=== PATIENT | male | born 1945 | race Caucasian/White ===

== ENCOUNTER 2022-02-23 08:43 | Day surgery (SDC) | payer MEDICARE, OTHER ==
[2022-02-20 15:31] VITALS: BMI 33.9
[~2022-02-23 08:43] MED LIST: ALPRAZolam 0.25 MG TAB PO PRN; ALPRAZolam 0.5 MG TAB PO PRN; ASPIRIN 325 MG TAB PO ONE; HEPARIN SODIUM,PORCINE 10,000 UNIT in SODIUM CHLORIDE 0.9% 1,000 ML IRRIGATION PRN; HEPARIN SODIUM,PORCINE 2,500 UNIT in SODIUM CHLORIDE 0.9% 250 ML IRRIGATION PRN; NITROGLYCERIN SL TABS 0.4 MG TAB SUBLINGUAL PRN; SODIUM CHLORIDE 0.9% 1,000 ML in EMPTY BAG 1 BAG IV SCH
[2022-02-23] MEDS ORDERED: SODIUM CHLORIDE 0.9% 1,000 ML IV ONE (08:52)
[2022-02-23] MEDS ORDERED: LIDOCAINE 1% INJ 10MG/ML (20 ML MDV) ONE (09:29)
[2022-02-23] MEDS ORDERED: VERAPAMIL 2.5 MG/ML 2 ML AMP ONE (09:29)
[2022-02-23 09:32] LABS: Basophils # (A) 0.1 k/uL (0-0.2); Basophils % (A) 1 %; Eosinophils # (A) 0.1 k/uL (0-0.7); Eosinophils % (A) 1 %; HCT 48.7 % (39.0-53.0); HGB 16.3 gm/dL (13.0-17.5); Lymphocytes % (A) 23 %; MCH 34.5 pg (25.0-35.0); MCHC 33.5 g/dL (31.0-37.0); MCV 102.9 fL (80.0-100.0); Macrocytosis Moderate; Mean Platelet Volume 9.4; Monocytes # (A) 0.6 k/uL (0-1.0); Monocytes % (A) 7 %; Neutrophils # (A) 5.7 k/uL (1.3-7.7); Neutrophils % (A) 66 %; Platelet Count 231 k/uL (150-450); RBC 4.73 m/uL (4.30-5.90); RDW 15.9 % (11.5-15.5); WBC 8.7 k/uL (3.8-10.6)
[2022-02-23 09:33] VITALS: RESP 16; TEMP 98.2
[2022-02-23 09:34] LABS: Calcium 9.2 mg/dL (8.4-10.2); Potassium 4.2 mmol/L (3.5-5.1)
[2022-02-23] MEDS ORDERED: fentaNYL (PF) 50 MCG/ML 2 ML AMP ONE (10:20)
[2022-02-23] MEDS ORDERED: HEPARIN SODIUM 1,000 UN/ML (10ML VL) ONE (10:21)
[2022-02-23] MEDS: MIDAZOLAM 2 MG/2 ML VIAL IV ONE ×2 (10:24→10:50)
[2022-02-23] MEDS ORDERED: fentaNYL (PF) 50 MCG/ML 2 ML AMP IV ONE (10:24)
[2022-02-23] MEDS ORDERED: LIDOCAINE 1% INJ 10MG/ML (20 ML MDV) SQ ONE (10:25)
[2022-02-23] MEDS ORDERED: HEPARIN SODIUM 1,000 UN/ML (10ML VL) IV ONE (10:35)
[2022-02-23] MEDS: VERAPAMIL SYRINGE (5 MG/10 ML) INTRAARTER ONE ×2 (10:35→10:40)
[2022-02-23] MEDS ORDERED: IOPAMIDOL-370 125ML BTL INJ ONE (11:11)
[2022-02-23 13:34] VITALS: PULSE 68
[2022-02-23 13:36] VITALS: BP 164/79
--- NOTE | 2022-02-23 21:46 | P.CARDCATH ---
Description of Procedure: PROCEDURES PERFORMED: Left heart catheterization, bilateral coronary angiography INDICATION: Abnormal stress test CONSENT:I have discussed the risks, benefits and alternative therapies for the above-mentioned procedure and for both sedation/analgesia as well as necessary blood product administration, if indicated, as they pertain to this patient. The patient has indicated understanding and acceptance of the risks and procedures discussed. PROCEDURE: After the risks, benefits and alternatives of the above mentioned procedure explained in detail with the patient, informed consent was obtained. Patient was taken to the catheterization lab and prepped and draped in usual fashion. 1% lidocaine was used to anesthetize the right radial artery. A 6- [place] Islander sheath was placed in the right radial artery using modified Seldinger technique. Left coronary angiography was performed with a 6-[place] Islander JL 3.5 catheter and right coronary angiography was performed with a 6-[place] Islander AL 0.75 guide catheter in various views after multiple attempts with FR5, AR2, AL1, Shaji Right. There was significant tortuosity of the subclavian however manageable. A 5-[place] Islander FR5 catheter was inserted into the left ventricle and pressure measurements were obtained. The right radial sheath was removed and a TR band was placed with hemostasis achieved. The patient tolerated the procedure well. Patient was transported back to the post catheterization holding area in stable condition. Conscious Sedation: Patient was monitored under the direct supervision of vision of myself for conscious sedation using Versed and fentanyl for a total duration of 47 minutes HEMODYNAMICS: Ao: 143/78 LV: 146/5, LVEDP 19 mmHg, SELECTIVE CORONARY ARTERIOGRAPHY: LEFT MAIN: The left main is a large caliber vessel which bifurcates into the LAD and circumflex. There is no significant stenosis. LEFT ANTERIOR DESCENDING CORONARY ARTERY: LAD is a large caliber vessel which wraps around to the apex. There is a mid LAD stent at the level of a small caliber diagonal 1 branch which has a 50% instent stenosis. Otherwise there are mild luminal irregularities. LEFT CIRCUMFLEX CORONARY ARTERY: Left circumflex is a moderate to large caliber vessel without significant stenosis and is dominant supplying PDA. RIGHT CORONARY ARTERY: The right coronary artery is a small caliber vessel which gives off an acute marginal branch and is nondominant. There is no significant stenosis. FINAL IMPRESSION: 1. CAD as described above with 50% instent LAD stenosis and otherwise normal coronary arteries. 2. Mildly elevated left sided filling pressures PLAN: 1. Aggressive risk factor modification per most recent ACC/AHA guidelines. 2. Follow-up in the office in 1-2 weeks.
== END 2022-02-23 15:10 | disposition home or self-care (01) ==
LOC: CATHCVL 08:43
PROVIDERS: ATTEND Internal Medicine
DX: T82.855A Stenosis of coronary artery stent, initial encounter (principal); I12.9 Hypertensive chronic kidney disease with stage 1 through stage 4 chronic kidney disease, or unspecified chronic kidney disease; N18.9 Chronic kidney disease, unspecified; E78.5 Hyperlipidemia, unspecified; E83.119 Hemochromatosis, unspecified; R94.39 Abnormal result of other cardiovascular function study; Z20.822 Contact with and (suspected) exposure to COVID-19; I42.9 Cardiomyopathy, unspecified; Z79.82 Long term (current) use of aspirin; Z79.899 Other long term (current) drug therapy
CPT/HCPCS: 93458; 80048; 85025; 87635; C1887; C1894 ×2; C1769 ×2; J2250; J2001; J3010; J1644; Q9967

== ENCOUNTER 2025-03-17 01:58 | Inpatient (IN) | payer MEDICARE, OTHER ==
[2025-03-17] MEDS ORDERED: HEPARIN SODIUM 1,000 UN/ML (10ML VL) IV PRN (02:16)
[2025-03-17] MEDS ORDERED: NITROGLYCERIN SL TABS 0.4 MG TAB SUBLINGUAL PRN ×2 (02:17→10:07)
[2025-03-17] MEDS: HEPARIN SOD,PORK IN 0.45% NACL 25,000 UNIT in 0.45% NACL 1 250ML.BAG IV SCH (02:18)
--- NOTE | 2025-03-17 02:21 | ED ---
General Adult HPI - General Chief complaint: Arrhythmia/Palpitations Stated complaint: Abnormal Labs, Shoulder Pain Time Seen by Provider: 03/17/25 02:01 Source: patient, EMS Mode of arrival: EMS Limitations: no limitations - History of Present Illness Initial comments: Dictation was produced using [employer] dictation software. please excuse any grammatical, word or spelling errors. Chief Complaint: 79-year-old male transferred from [facility] for NSTEMI History of Present Illness: Patient 79-year-old male history of coronary artery disease transferred from [facility] for NSTEMI. Patient had elevated delta high-sensitivity troponin. Patient seen for couple days of exertional left shoulder pain reminiscent of when he was diagnosed with a heart attack several years ago. He follows up with Dr. Portillo from our cardiology team. Patient states that he has 2 stents. Seen and evaluated at [facility] high-sensitivity troponin of 11 with a repeat of 59. Started heparin and transferred to our hospital. Patient denies any symptoms at the bedside. The ROS documented in this emergency department record has been reviewed and confirmed by me. Those systems with pertinent positive or negative responses have been documented in the HPI. All other systems are other negative and/or noncontributory. - Related Data Home Medications Medication Instructions Recorded Confirmed Acetaminophen Tab [Tylenol Tab] 1,000 mg PO BID 02/20/22 02/23/22 Aspirin [Adult Low Dose Aspirin EC] 81 mg PO HS 02/20/22 02/23/22 Atorvastatin [Lipitor] 80 mg PO HS 02/20/22 02/23/22 Calcium Tab 300 mg PO DAILY 02/20/22 02/23/22 Cholecalciferol [Vitamin D3 (25 50 mcg PO DAILY 02/20/22 02/23/22 Mcg = 1000 Iu)] Folic Acid 1 mg PO HS 02/20/22 02/23/22 Losartan Potassium [Cozaar] 100 mg PO DAILY 02/20/22 02/23/22 [place]-3 Fatty Acids/Fish Oil [Fish 1 each PO DAILY 02/20/22 02/23/22 Oil 1,000 mg Softgel] Omeprazole [PriLOSEC] 20 mg PO AC-BRKFST 02/20/22 02/23/22 Tamsulosin HCl [Flomax] 0.4 mg PO BID 02/20/22 02/23/22 allopurinoL [Zyloprim] 300 mg PO HS 02/20/22 02/23/22 carvediloL [Coreg] 6.25 mg PO BID 02/20/22 02/23/22 cloNIDine HCL [Catapres] 0.2 mg PO HS 02/20/22 02/23/22 Allergies Allergy/AdvReac Type Severity Reaction Status Date / Time adhesive tape Allergy Rash/Hives Verified 03/17/25 02:04 Review of Systems ROS Statement: Those systems with pertinent positive or pertinent negative responses have been documented in the HPI. ROS Other: All systems not noted in ROS Statement are negative. Past Medical History Past Medical History: Coronary Artery Disease (CAD), CVA/TIA, Diabetes Mellitus, GERD/Reflux, Hyperlipidemia, Hypertension, Myocardial Infarction (DE), Osteoarthritis (OA) Additional Past Medical History / Comment(s): TIA-no residual effects, "silent [place] x 5", hx ulcer, occ "bleeding hemorrhoid", diet control diabetic, hemachromatosis, "lttle problem with the kidneys" Last Myocardial Infarction Date:: 1988 History of Any Multi-Drug Resistant Organisms: None Reported Past Surgical History: Appendectomy, Heart Catheterization, Heart Catheterization With Stent, Prostate Surgery Additional Past Surgical History / Comment(s): two cardiac stents, moreno cataracts with implants Past Anesthesia/Blood Transfusion Reactions: No Reported Reaction Date of Last Stent Placement:: 1998 Past Psychological History: No Psychological Hx Reported Smoking Status: Former smoker - Past Family History Mother Family Medical History: Cancer Additional Family Medical History / Comment(s): colon cancer General Exam - General Exam Comments Initial Comments: PHYSICAL EXAM: General Impression: Alert and oriented x3, not in acute distress HEENT: Normocephalic atraumatic, extra-ocular movements intact, pupils equal and reactive to light bilaterally, mucous membranes moist. Cardiovascular: Heart regular rate and rhythm Chest: Able to complete full sentences, no retractions, no tachypnea Abdomen: abdomen soft, non-tender, non-distended, no organomegaly Musculoskeletal: Pulses present and equal in all extremities, no peripheral edema Motor: no focal deficits noted Neurological: CN II-XII grossly intact, no focal motor or sensory deficits noted Skin: Intact with no visualized rashes Psych: Normal affect and mood Limitations: no limitations Course Vital Signs 03/17/25 01:59 Temperature 97.6 F Pulse Rate 87 Respiratory 20 Rate Blood Pressure 173/100 O2 Sat by Pulse 99 Oximetry EKG Findings - EKG Comments: EKG Findings:: My EKG interpretation: Ventricular rate 87, sinus rhythm,. 174, QRS 93, QTc 4 3. No [place] prolongation, no QTC prolongation. EKG from [facility] from 9:30 PM yesterday and 12:56 AM this morning showing no dynamic changes Medical Decision Making - Medical Decision Making Was pt. sent in by a medical professional or institution (, PA, BLACK TOP PAVER OPERATOR, urgent care, hospital, or shelter...) When possible be specific @ -Transfer from outside emergency department Did you speak to anyone other than the patient for history (EMS, parent, family, police, friend...)? What history was obtained from this source @ -No Did you review nursing and triage notes (agree or disagree)? Why? @ -I reviewed and agree with nursing and triage notes Were old charts reviewed (outside hosp., previous admission, EMS record, old EKG, old radiological studies, urgent care reports/EKG's, shelter records)? Report findings @ -No old charts were reviewed Differential Diagnosis (chest pain, altered mental status, abdominal pain women, abdominal pain men, vaginal bleeding, musculoskeletal, weakness, fever, dyspnea, syncope, headache, dizziness, GI bleed, back pain, seizure, CVA, palpatations, mental health)? @ -Differential Chest Pain: Stable Angina, Unstable Angina, STEMI, NSTEMI Aortic Dissection, Pneumothorax, Musculoskeletal, Esophageal Spasm GERD, Cholecystitis, Pancreatitis, Zoster, this is not meant to be an all-inclusive list. EKG interpreted by me (3pts min.). @ -See above X-rays interpreted by me (1pt min.). @ -None done CT interpreted by me (1pt min.). @ -None done U/S interpreted by me (1pt. min.). @ -None done What testing was considered but not performed or refused? (CT, X-rays, U/S, labs)? Why? @ -None What meds were considered but not given or refused? Why? @ -None Was smoking cessation discussed for >3mins.? @ -No Were there social determinants of health that impacted care today? How? (Homelessness, low income, unemployed, alcoholism, drug addiction, transportation, low edu. Level, literacy, decrease access to med. care, nursing home, rehab)? @ -No Was there de-escalation of care discussed even if they declined (Discuss DNR or withdrawal of care, Hospice)? DNR status @ -No What co-morbidities impacted this encounter? (DM, HTN, Smoking, COPD, CAD, Cancer, CVA, ARF, Chemo, Hep., AIDS, mental health diagnosis, sleep apnea, morbid obesity)? @ -Coronary artery disease Was patient admitted / discharged? Hospital course, mention meds given and r oute, prescriptions, significant lab abnormalities, going to OR and other pertinent info. @ -79-year-old male presents emergency department for NSTEMI. He is transferred from outside emergency department. Patient had a positive delta high-sensitivity troponin. Vital signs stable. Patient transferred for higher level of care at the facility of his primary machine setter. EKG shows no dynamic changes when compared to EKGs from previous hospital. Heparin continued. Case discussed with hospitalist for admission Did you discuss the management of the patient with other professionals (professionals i.e. , PA, BLACK TOP PAVER OPERATOR, lab, RT, psych nurse, addiction social worker, active directory systems administrator, teacher, custodial officer, manager rn case)? Give summary @ -No Was critical care preformed (if so, how long)? @ -No Undiagnosed new problem with uncertain prognosis? @ -No Drug Therapy requiring intensive monitoring for toxicity (Heparin, Nitro, Insulin, Cardizem)? @ -No Were any procedures done? @ -No Diagnosis/symptom? Acute, or Chronic, or Acute on Chronic? Uncomplicated (without systemic symptoms) or Complicated (systemic symptoms)? @ -Default Side effects of treatment? @ -chest pain Exacerbation, Progression, or Severe Exacerbation? @ -No Poses a threat to life or bodily function? How? (Chest pain, [place], DE, pneumonia, PE, COPD, DKA, ARF, appy, cholecystitis, CVA, Diverticulitis, Homicidal, Suicidal, threat to staff... and all critical care pts) @ -yes Disposition Clinical Impression: NSTEMI (non-ST elevated myocardial infarction) Disposition: ADMITTED IP TO THIS [facility] Condition: Fair Decision Time: 03:16
[2025-03-17] MEDS: NITROGLYCERIN OINT 1 INCH/GM PACKET TOPICAL SCH (06:24)
[2025-03-17] MEDS: MAGNESIUM SULFATE-D5W PMX 1 GM in DEXTROSE/WATER 1 100ML.BAG IVPB SCH (09:24)
[2025-03-17] MEDS: carvediloL 6.25 MG TAB PO SCH (09:25)
[2025-03-17 09:52] LABS: African American GFR (CKD) 57 (>60 ml/min/1.73 sqM); Anion Gap 13 mmol/L; Blood Urea Nitrogen 27 mg/dL (9-20); Calcium 9.4 mg/dL (8.4-10.2); Carbon Dioxide 20 mmol/L (22-30); Chloride 107 mmol/L (98-107); Glucose 145 mg/dL (74-99); Non-African American GFR(CKD) 49 (>60 ml/min/1.73 sqM); Potassium 4.4 mmol/L (3.5-5.1); Sodium 140 mmol/L (137-145)
[2025-03-17] MEDS ORDERED: ALPRAZolam 0.5 MG TAB PO PRN (10:07)
[2025-03-17] MEDS: SODIUM CHLORIDE 0.9% 500 ML 500 ML IV ONE (10:24)
[2025-03-17] MEDS: IV FLUID CONTINUATION 1,000 ML IV ONE (10:24)
[2025-03-17] MEDS: HEPARIN SODIUM,PORCINE (1 ML) 2,500 UNIT in SODIUM CHLORIDE 0.9% 250 ML IRRIGATION ONE (10:30)
[2025-03-17] MEDS: HEPARIN SODIUM,PORCINE 10,000 UNIT in SODIUM CHLORIDE 0.9% 1,000 ML IRRIGATION ONE (10:30)
[2025-03-17] MEDS: ASPIRIN 325 MG TAB PO ONE (10:36)
[2025-03-17] MEDS: MIDAZOLAM 2 MG/2 ML VIAL IVP ONE (10:52)
[2025-03-17] MEDS: fentaNYL (PF) 50 MCG/ML 2 ML AMP IVP ONE (10:53)
[2025-03-17] MEDS: LIDOCAINE 1% INJ 10MG/ML (20 ML MDV) SQ ONE (10:57)
[2025-03-17] MEDS: VERAPAMIL SYRINGE (5 MG/10 ML) INTRAARTER ONE (10:59)
[2025-03-17] MEDS: NITROGLYCERIN 1000MCG/10ML SYRINGE INTRACORON ONE (11:12)
[2025-03-17] MEDS: IOPAMIDOL-370 100ML BTL INJ ONE ×3 (11:28→11:29)
--- NOTE | 2025-03-17 12:23 | P.CRDCN ---
History of Present Illness Consult date: 03/17/25 Requesting physician: Praveen Crow Reason for Consult (text): chest pain Chief complaint: Left shoulder pain History of present illness: Patient is a 79 year old male with past medical history of CAD status post prior stenting, diabetes mellitus, hyperlipidemia, hypertension, TIA presented to the ED with left shoulder pain. Patient reports having left shoulder pain for 2 to 3 days now. Pain extends down to middle of the upper arm. He reports worsening of the pain with brisk walks. Denies chest pain. Denies any increase in physical activity. Denies trauma/injury. Associated with that he reports epigastric burning and diaphoresis. Patient initially presented to [facility] where he had elevated high-sensitivity troponin of 11 with a repeat of 59. He was started on heparin and transferred to our hospital. In 1998 patient had a mid LAD stent placed. Patient had cardiac cath January 2022 that showed the mid LAD stent was patent, 50% stenosis of the mid LAD, dominant circumflex, with only mild luminal irregularities. Carotid ultrasound done in June 2023 showed less than 50% stenosis bilaterally. Denies fever, chills, shortness of breath, cough, chest pain, palpitations, nausea, vomiting, hematuria, dysuria, hematochezia, melena, headache, slurred speech, numbness, tingling, dizziness, lightheadedness, blurred vision, double vision. ED documentation reviewed. In the ED patient was treated with aspirin 325 mg, heparin drip. Vitals T 98.1 F, AR 79 bpm, RR 18, BP 155/94, SpO2 99% on room air EKG independently interpreted as sinus rhythm, ST depression in lead II,, rate 87 bpm, QTc 403 ms Chest x-ray done at [facility] showed no consolidation Labs show sodium 140, potassium 4.4, magnesium 1.8, creatinine 1.37, Troponin I 3.30, 4.64 Echocardiogram done in office December 2023 showed EF 50%, mildly improved from prior 45 to 40% with mild aortic regurgitation and mild mitral regurgitation Review of systems: Pertinent positives and negatives as discussed in HPI, a complete review of systems was performed and all other systems are negative. Physical examination: Vital signs reviewed GENERAL: This is a 79-year-old obese male in no acute respiratory distress. HEENT: Head is atraumatic, normocephalic. Pupils equal, round. Sclerae is anicteric. NECK: Supple. No JVD. No carotid bruit LUNGS: Clear to auscultation. No wheezes or rhonchi. No intercostal retractions. HEART: Regular rate and rhythm. No murmur or gallop or rub ABDOMEN: Soft No tenderness. EXTREMITIES: Left shoulder tenderness, No pedal edema. No calf tenderness. 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 please excuse any grammatical, word or spelling errors. Veniat Greene MD PGY-1 IM Past Medical History Past Medical History: Coronary Artery Disease (CAD), CVA/TIA, Diabetes Mellitus, GERD/Reflux, Hyperlipidemia, Hypertension, Myocardial Infarction (MD), Osteoarthritis (OA) Additional Past Medical History / Comment(s): TIA-no residual effects, "silent [place] x 5", hx ulcer, occ "bleeding hemorrhoid", diet control diabetic, hemachromatosis, "lttle problem with the kidneys" Last Myocardial Infarction Date:: 1988 History of Any Multi-Drug Resistant Organisms: None Reported Past Surgical History: Appendectomy, Heart Catheterization, Heart Catheterization With Stent, Prostate Surgery Additional Past Surgical History / Comment(s): two cardiac stents, moreno cataracts with implants Past Anesthesia/Blood Transfusion Reactions: No Reported Reaction Date of Last Stent Placement:: 1998 Past Psychological History: No Psychological Hx Reported Smoking Status: Former smoker - Past Family History Mother Family Medical History: Cancer Additional Family Medical History / Comment(s): colon cancer Medications and Allergies Home Medications Medication Instructions Recorded Confirmed Type Acetaminophen Tab [Tylenol Tab] 1,000 mg PO BID 02/20/22 03/17/25 History Aspirin [Adult Low Dose Aspirin EC] 81 mg PO HS 02/20/22 03/17/25 History Atorvastatin [Lipitor] 80 mg PO HS 02/20/22 03/17/25 History Calcium Tab 300 mg PO DAILY 02/20/22 03/17/25 History Folic Acid 1 mg PO HS 02/20/22 03/17/25 History Omeprazole [PriLOSEC] 20 mg PO DAILY 02/20/22 03/17/25 History Tamsulosin HCl [Flomax] 0.4 mg PO BID 02/20/22 03/17/25 History allopurinoL [Zyloprim] 300 mg PO HS 02/20/22 03/17/25 History carvediloL [Coreg] 6.25 mg PO BID 02/20/22 03/17/25 History cloNIDine HCL [Catapres] 0.2 mg PO BID 02/20/22 03/17/25 History Cholecalciferol (Vitamin D3) 50 mcg PO DAILY 03/17/25 03/17/25 History [Vitamin D3 (50 Mcg = 2000 Iu)] Losartan [Cozaar] 50 mg PO HS 03/17/25 03/17/25 History Allergies Allergy/AdvReac Type Severity Reaction Status Date / Time adhesive tape Allergy Rash/Hives Verified 03/17/25 07:38 Physical Exam Vitals: Vital Signs Temp Pulse Pulse Resp BP BP Pulse Ox 03/17/25 10:27 96 18 154/102 96 03/17/25 08:00 98.1 F 89 18 148/101 96 03/17/25 06:03 79 18 155/94 99 03/17/25 01:59 97.6 F 87 20 173/100 99 Intake and Output 03/16/25 03/17/25 03/17/25 22:59 06:59 14:59 Other: Weight 108.862 kg Results 03/17/25 06:31 Cardiac Enzymes 03/17/25 03/17/25 Range/Units 02:40 05:15 Troponin I 3.300 H* 4.640 H* (0.000-0.034) ng/mL Coagulation 03/17/25 Range/Units 06:31 APTT 62.8 H (22.0-30.0) sec Comprehensive Metabolic Panel 03/17/25 Range/Units 06:31 Sodium 140 (137-145) mmol/L Potassium 4.4 (3.5-5.1) mmol/L Chloride 107 (98-107) mmol/L Carbon Dioxide 20 L (22-30) mmol/L BUN 27 H (9-20) mg/dL Creatinine 1.36 H (0.66-1.25) mg/dL Glucose 145 H (74-99) mg/dL Calcium 9.4 (8.4-10.2) mg/dL Current Medications Generic Name Dose Route Start Last Admin Trade Name Freq PRN Reason Stop Dose Admin Alprazolam 0.25 mg 03/17/25 10:07 Alprazolam 0.25 Mg Tab PO Q6HR PRN Mild Anxiety Alprazolam 0.5 mg 03/17/25 10:07 Alprazolam 0.5 Mg Tab PO Q6HR PRN Moderate Anxiety Aspirin 81 mg 03/17/25 21:00 Aspirin 81 Mg PO HS SHAKIR Atorvastatin Calcium 80 mg 03/17/25 21:00 Atorvastatin 80 Mg Tab PO HS SHAKIR Carvedilol 6.25 mg 03/17/25 09:00 03/17/25 09:25 Carvedilol 6.25 Mg Tab PO 6.25 mg BID-W/MEALS SHAKIR Administration Heparin Sodium (Porcine) 0 unit 03/17/25 02:16 Heparin Sodium 1,000 Un/Ml (10ml Vl) IV PER PROTOCOL PRN Low PTT Protocol Heparin Sodium/Sodium Chloride 250 mls @ 10.004 mls/hr 03/17/25 02:30 03/17/25 02:18 25,000 unit/ Sodium Chloride IV 12 units/kg/hr .Q24H SHAKIR 13.063 mls/hr Administration Protocol 9.19 UNITS/KG/HR Heparin Sodium (Porcine) 10, 1,001 mls @ 999 mls/hr 03/18/25 07:00 000 unit/ Sodium Chloride IRRIGATION 03/18/25 23:00 ONCE PRN INTRA-OP Heparin Sodium (Porcine) 2,500 250.5 mls @ 250 mls/hr 03/18/25 07:00 unit/ Sodium Chloride IRRIGATION 03/18/25 23:00 ONCE PRN INTRA-OP Sodium Chloride 1,000 ml/ IV 1,000 mls @ 108.862 mls/hr 03/17/25 10:15 Solution IV .Q9H12M SHAKIR 1 ML/KG/HR Losartan Potassium 50 mg 03/17/25 21:00 Losartan 50 Mg Tab PO HS SHAKIR Nitroglycerin 0.4 mg 03/17/25 02:17 Nitroglycerin Sl Tabs 0.4 Mg Tab SUBLINGUAL Q5M PRN Chest Pain Nitroglycerin 1 inch 03/17/25 06:30 03/17/25 06:24 Nitroglycerin Oint 1 Inch/Gm Packet TOPICAL 1 inch Q6HR SHAKIR Administration Intake and Output 03/16/25 03/17/25 03/17/25 22:59 06:59 14:59 Other: Weight 108.862 kg 03/17/25 06:31
--- NOTE | 2025-03-17 12:26 | P.HPIM ---
History of Present Illness 79-year-old male with history of coronary artery disease and prior history of stenting came in with complaints of left shoulder pain for about 2 to 3 days radiating to the middle of the upper arm associate with some diaphoresis on and off chest pain. EKG showed ST depressions in anterior and lateral leads chest x-ray that was done at outside hospital did not show any significant abnormality. Patient had last cardiac catheterization in 2021 had a mid LAD stent placed at that time. Patient had a normal ejection fraction in the past from the echocardiogram that was done as an outpatient. Patient was started on heparin and is going to [facility] for cardiac catheterization and possible stenting. REVIEW OF SYSTEMS: All other systems are negative except those mentioned in the HPI PHYSICAL EXAMINATION: GENERAL: The patient is alert and oriented x3, not in any acute distress. Well developed, well nourished. HEENT: Pupils are round and equally reacting to light. EOMI. No scleral icterus. No conjunctival pallor. Normocephalic, atraumatic. No pharyngeal erythema. No thyromegaly. CARDIOVASCULAR: S1 and S2 present. No murmurs, rubs, or gallops. PULMONARY: Chest is clear to auscultation, no wheezing or crackles. ABDOMEN: Soft, nontender, nondistended, normoactive bowel sounds. No palpable organomegaly. MUSCULOSKELETAL: No joint swelling or deformity. EXTREMITIES: No cyanosis, clubbing, or pedal edema. NEUROLOGICAL: Gross neurological examination did not reveal any focal deficits. SKIN: No rashes. Assessment and plan -Acute non-ST elevation myocardial infarction continue with heparin dual antiplatelet therapy. Patient will undergo cardiac evaluation today -Hypertension - Hyperlipidemia - History of coronary disease - Type 2 diabetes mellitus For above-mentioned chronic medical problems patient will be resumed on appropriate home medications DVT prophylaxis: Is on anticoagulation at this time Past Medical History Past Medical History: Coronary Artery Disease (CAD), CVA/TIA, Diabetes Mellitus, GERD/Reflux, Hyperlipidemia, Hypertension, Myocardial Infarction ([place]), Osteoarthritis (OA) Additional Past Medical History / Comment(s): TIA-no residual effects, "silent [place] x 5", hx ulcer, occ "bleeding hemorrhoid", diet control diabetic, hemachromatosis, "lttle problem with the kidneys" Last Myocardial Infarction Date:: 1988 History of Any Multi-Drug Resistant Organisms: None Reported Past Surgical History: Appendectomy, Heart Catheterization, Heart Catheterization With Stent, Prostate Surgery Additional Past Surgical History / Comment(s): two cardiac stents, moreno cataracts with implants Past Anesthesia/Blood Transfusion Reactions: No Reported Reaction Date of Last Stent Placement:: 1998 Past Psychological History: No Psychological Hx Reported Smoking Status: Former smoker - Past Family History Mother Family Medical History: Cancer Additional Family Medical History / Comment(s): colon cancer Medications and Allergies Home Medications Medication Instructions Recorded Confirmed Type Acetaminophen Tab [Tylenol Tab] 1,000 mg PO BID 02/20/22 03/17/25 History Aspirin [Adult Low Dose Aspirin EC] 81 mg PO HS 02/20/22 03/17/25 History Atorvastatin [Lipitor] 80 mg PO HS 02/20/22 03/17/25 History Calcium Tab 300 mg PO DAILY 02/20/22 03/17/25 History Folic Acid 1 mg PO HS 02/20/22 03/17/25 History Omeprazole [PriLOSEC] 20 mg PO DAILY 02/20/22 03/17/25 History Tamsulosin HCl [Flomax] 0.4 mg PO BID 02/20/22 03/17/25 History allopurinoL [Zyloprim] 300 mg PO HS 02/20/22 03/17/25 History carvediloL [Coreg] 6.25 mg PO BID 02/20/22 03/17/25 History cloNIDine HCL [Catapres] 0.2 mg PO BID 02/20/22 03/17/25 History Cholecalciferol (Vitamin D3) 50 mcg PO DAILY 03/17/25 03/17/25 History [Vitamin D3 (50 Mcg = 2000 Iu)] Losartan [Cozaar] 50 mg PO HS 03/17/25 03/17/25 History Allergies Allergy/AdvReac Type Severity Reaction Status Date / Time adhesive tape Allergy Rash/Hives Verified 03/17/25 07:38 Physical Exam Vitals: Vital Signs Temp Pulse Pulse Resp BP BP Pulse Ox 03/17/25 10:27 96 18 154/102 96 03/17/25 08:00 98.1 F 89 18 148/101 96 03/17/25 06:03 79 18 155/94 99 03/17/25 01:59 97.6 F 87 20 173/100 99 Intake and Output 03/16/25 03/17/25 03/17/25 22:59 06:59 14:59 Intake Total 202 Balance 202 Intake: IV 202 Other: Weight 108.862 kg Results CBC & Chem 7: 03/17/25 06:31 Labs: Abnormal Lab Results - Last 24 Hours (Table) 03/17/25 03/17/25 03/17/25 Range/Units 02:40 05:15 06:31 APTT 62.8 H (22.0-30.0) sec Carbon Dioxide (22-30) mmol/L BUN (9-20) mg/dL Creatinine (0.66-1.25) mg/dL Glucose (74-99) mg/dL Troponin I 3.300 H* 4.640 H* (0.000-0.034) ng/mL 03/17/25 Range/Units 06:31 APTT (22.0-30.0) sec Carbon Dioxide 20 L (22-30) mmol/L BUN 27 H (9-20) mg/dL Creatinine 1.36 H (0.66-1.25) mg/dL Glucose 145 H (74-99) mg/dL Troponin I (0.000-0.034) ng/mL
[2025-03-17] MEDS: ATORVASTATIN 80 MG TAB PO STA (15:55)
[2025-03-17] MEDS: SODIUM CHLORIDE 0.9% 1,000 ML in EMPTY BAG 1 BAG IV SCH (15:55)
[2025-03-17] MEDS: ASPIRIN 325 MG TAB PO STA (15:55)
[2025-03-17] MEDS: ALPRAZolam 0.25 MG TAB PO PRN (16:09)
[2025-03-17] MEDS: PANTOPRAZOLE 40 MG/10 ML VIAL IVP SCH (16:33)
[2025-03-17] MEDS: ASPIRIN 81 MG PO SCH (20:06)
[2025-03-17] MEDS: TAMSULOSIN 0.4 MG CAP.ER.24H PO SCH (20:06)
[2025-03-17] MEDS: ATORVASTATIN 80 MG TAB PO SCH (20:06)
[2025-03-17] MEDS: LOSARTAN 50 MG TAB PO SCH (20:06)
--- NOTE | 2025-03-17 22:30 | P.CARDCATH ---
Description of Procedure: PROCEDURES PERFORMED: Left heart catheterization, bilateral coronary angiography, left ventriculography, iFR of RCA, ultrasound guided access INDICATION: NSTEMI CONSENT:I have discussed the risks, benefits and alternative therapies for the above-mentioned procedure and for both sedation/analgesia as well as necessary blood product administration, if indicated, as they pertain to this patient. The patient has indicated understanding and acceptance of the risks and procedures discussed. PROCEDURE: After the risks, benefits and alternatives of the above mentioned procedure explained in detail with the patient, informed consent was obtained. Patient was taken to the catheterization lab and prepped and draped in usual fashion. 1% lidocaine was used to anesthetize the left radial artery given significant tortuosity of subclavian previously. A 6-[place] sheath was placed in the left radial artery using modified Seldinger technique. Left coronary angiography was performed with a 6-[place] JL 3.5 catheter and right coronary angiography was performed with a 6-[place] AR2 guide catheter. A 6-[place] AR2 catheter was inserted into the left ventricle and pressure measurements were obtained. There was some ambiguous appearing RCA lesion feeding a small caliber nondominant vessel however functional assessment was recommended. Heparin was given. Using the AR2 catheter, a pressure wire was advanced into the proximal RCA and normalized. It was then advanced into the distal RCA and iFR was performed and was normal at 0.97. The wire was removed. Given concern of not obvious etiology of symptoms, left ventriculogram was recommended and was performed in the MAZARIEGOS projection with a pigtail catheter and power injection. Finally, repeat images of the left coronary system were performed with a 6Fr CLS 4.0 catheter in a number of views. Culprit artery appeared to be the small caliber diagonal inferior branch vs atypical Takotsubo's however diagonal branch too small for stenting or angioplasty and felt best treated medically. The radial sheath was removed and a TR band was placed with hemostasis achieved. The patient tolerated the procedure well. Patient was transported back to the post catheterization holding area in stable condition. Conscious Sedation: Patient was monitored under the direct supervision of vision of myself for conscious sedation using Versed and fentanyl for a total duration of 32 minutes HEMODYNAMICS: Ao: 13394 LV: 136/10, LVEDP 19 mmHg LEFT VENTRICULOGRAM: LV EF 40-45% with mid anterior, mid inferior hypokinesis however preserving the apex. Possibly related to atypical Takotsubo's cardiomyopathy vs myocarditis SELECTIVE CORONARY ARTERIOGRAPHY: LEFT MAIN: The left main is a large caliber vessel which bifurcates into the LAD and circumflex. There is no significant stenosis. LEFT ANTERIOR DESCENDING CORONARY ARTERY: LAD is a large caliber vessel which wraps around to the apex. There is a mid LAD stent at the level of a small caliber diagonal 1 branch which has a 40-50% instent stenosis. Otherwise there are mild luminal irregularities. There is a small caliber diagonal 1 branch with the inferior branch having a 99% stenosis which is new compared to angiogram from 2021. LEFT CIRCUMFLEX CORONARY ARTERY: Left circumflex is a moderate to large caliber vessel with mild luminal irregularities, 20-30% mid circumflex and is dominant supplying PDA. RIGHT CORONARY ARTERY: The right coronary artery is a small caliber vessel which gives off an acute marginal branch and is nondominant. There is proximal 40% stenosis followed by a 50% stenosis. FINAL IMPRESSION: 1. CAD as described above with 40-50% instent LAD stenosis, 20-30% circumflex, 99% small caliber diagonal 1 branch, 40-50% RCA stenosis 2. Mildly elevated left sided filling pressures 3. iFR normal RCA 4. LV EF 40-45% with mid anterior, mid inferior hypokinesis however preserving the apex PLAN: 1. Aggressive risk factor modification per most recent ACC/AHA guidelines. 2. Progression of small caliber diagonal 1 inferior branch and this may be the culprit vessel however diagonal branch doesn't explain wall motion abnormalities and diagonal stenosis may be more chronic. Other etiologies may include atypical mid cavity Takatsubo's vs myocarditis. Consider cardiac MRI. Dual antiplatelets for 12 months.
[2025-03-17] MEDS: CLOPIDOGREL 75 MG TAB PO SCH (22:52)
[2025-03-18] MEDS ORDERED: HEPARIN SODIUM,PORCINE (1 ML) 2,500 UNIT in SODIUM CHLORIDE 0.9% 250 ML IRRIGATION PRN (07:00)
[2025-03-18] MEDS ORDERED: HEPARIN SODIUM,PORCINE 10,000 UNIT in SODIUM CHLORIDE 0.9% 1,000 ML IRRIGATION PRN (07:00)
[2025-03-18 07:02] LABS: Basophils # (A) 0.03 10*3/uL (0.00-0.10); Basophils % (A) 0.3 %; Eosinophils # (A) 0.01 10*3/uL (0.04-0.35); Eosinophils % (A) 0.1 %; HCT 51.7 % (39.6-50.0); HGB 17.9 g/dL (13.0-17.0); Lymphocytes # (A) 1.43 10*3/uL (0.90-5.00); Lymphocytes % (A) 12.3 %; MCH 33.2 pg (27.0-32.0); MCHC 34.6 g/dL (32.0-37.0); MCV 95.9 fL (80.0-97.0); Mean Platelet Volume 12.6 fL (9.5-12.2); Monocytes # (A) 1.51 10*3/uL (0.20-1.00); Neutrophils # (A) 8.58 10*3/uL (1.80-7.70); Neutrophils % (A) 73.9 %; Platelet Count 132 10*3/uL (140-440); RBC 5.39 10*6/uL (4.40-5.60); WBC 11.61 10*3/uL (4.50-10.00)
[2025-03-18 07:32] LABS: ALT 14 U/L (4-49); AST 37 U/L (17-59); African American GFR (CKD) 65 (>60 ml/min/1.73 sqM); Albumin 3.4 g/dL (3.5-5.0); Alkaline Phosphatase 75 U/L (38-126); Anion Gap 11 mmol/L; Blood Urea Nitrogen 17 mg/dL (9-20); Calcium 9.4 mg/dL (8.4-10.2); Carbon Dioxide 21 mmol/L (22-30); Chloride 107 mmol/L (98-107); Glucose 123 mg/dL (74-99); Magnesium 1.8 mg/dL (1.6-2.3); Non-African American GFR(CKD) 56 (>60 ml/min/1.73 sqM); Potassium 4.1 mmol/L (3.5-5.1); Sodium 139 mmol/L (137-145); Total Bilirubin 2.4 mg/dL (0.2-1.3); Total Protein 6.5 g/dL (6.3-8.2)
[2025-03-18] MEDS ORDERED: ASPIRIN 325 MG TAB PO SCH (09:00)
[2025-03-18 10:36] LABS: Chol/HDL Ratio 3.45 Ratio; LDL Cholesterol,Calculated 74.3 mg/dL (0.0-131.0)
[2025-03-18] MEDS: ISOSORBIDE MONONITRATE ER 30 MG TAB.ER.24H PO SCH (12:03)
--- NOTE | 2025-03-18 13:37 | P.PN ---
Subjective Progress Note Date: 03/18/25 Requesting physician: Praveen Crow Reason for Consult (text): chest pain Chief complaint: Left shoulder pain History of present illness: Patient is a 79 year old male with past medical history of CAD status post prior stenting, diabetes mellitus, hyperlipidemia, hypertension, TIA presented to the ED with left shoulder pain. Patient reports having left shoulder pain for 2 to 3 days now. Pain extends down to middle of the upper arm. He reports worsening of the pain with brisk walks. Denies chest pain. Denies any increase in physical activity. Denies trauma/injury. Associated with that he reports epigastric burning and diaphoresis. Patient initially presented to [facility] where he had elevated high-sensitivity troponin of 11 with a repeat of 59. He was started on heparin and transferred to our hospital. In 1998 patient had a mid LAD stent placed. Patient had cardiac cath January 2022 that showed the mid LAD stent was patent, 50% stenosis of the mid LAD, dominant circumflex, with only mild luminal irregularities. Carotid ultrasound done in June 2023 showed less than 50% stenosis bilaterally. Dnies fever, chills, shortness of breath, cough, chest pain, palpitations, nausea, vomiting, hematuria, dysuria, hematochezia, melena, headache, slurred speech, numbness, tingling, dizziness, lightheadedness, blurred vision, double vision. ED documentation reviewed. In the ED patient was treated with aspirin 325 mg, heparin drip. Vitals T 98.1 F, RI 79 bpm, RR 18, BP 155/94, SpO2 99% on room air EKG independently interpreted as sinus rhythm, ST depression in lead II,, rate 87 bpm, QTc 403 ms Chest x-ray done at [facility] showed no consolidation Labs show sodium 140, potassium 4.4, magnesium 1.8, creatinine 1.37, Troponin I 3.30, 4.64 Echocardiogram done in office December 2023 showed EF 50%, mildly improved from prior 45 to 40% with mild aortic regurgitation and mild mitral regurgitation 03/18 Patient seen and examined. Yesterday, patient underwent cardiac catheterization with Dr. Portillo which revealed coronary artery disease with 40 to 50% in-stent LAD stenosis, 20 to 30% circumflex, 99% small caliber diagonal 1 branch, 40 to 50% RCA stenosis. iFR was normal on the RCA. LV EF 40 to 45% with mid anterior, mild inferior hypokinesis however preserving the apex. Progression of small caliber diagonal 1 inferior branch may be culprit vessel however diagonal branch does not explain wall motion abnormalities and diagonal stenosis may be more chronic. Other etiologies to be considered including Takotsubo versus myocarditis and consider cardiac MRI as an outpatient. Patient to be on dual antiplatelets for 12 months. This morning, patient denies chest pain. He denies left shoulder pain. No tenderness. He is complaining of cough that is chronic with phlegm production. Blood pressure 115/78, heart rate 90, pulse ox 98% on room air. Physical examination: Vital signs reviewed GENERAL: This is a 79-year-old obese male in no acute respiratory distress. HEENT: Head is atraumatic, normocephalic. Pupils equal, round. Sclerae is anicteric. NECK: Supple. No JVD. No carotid bruit LUNGS: Clear to auscultation. No wheezes or rhonchi. No intercostal retractions. HEART: Regular rate and rhythm. No murmur or gallop or rub ABDOMEN: Soft No tenderness. EXTREMITIES: Left shoulder tenderness, No pedal edema. No calf tenderness. 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 Nurse practitioner note has been reviewed, I agree with documented findings and plan of care. Patient was seen and examined. Objective - Vital Signs Vital signs: Vital Signs Temp 97.8 F 03/18/25 08:00 Pulse 90 03/18/25 08:00 Resp 16 03/18/25 08:00 BP 115/78 03/18/25 08:00 Pulse Ox 98 03/18/25 08:00 FiO2 Intake & Output 03/17/25 03/18/25 03/18/25 18:59 06:59 18:59 Intake Total 402 Balance 402 Weight 108.862 kg 108.4 kg Intake: IV 402 Other: Voiding Method Toilet Toilet # Voids 1 2 1 - Labs CBC & Chem 7: 03/18/25 05:46 03/18/25 05:46 Labs: Abnormal Lab Results - Last 24 Hours (Table) 03/17/25 03/18/25 03/18/25 Range/Units 06:31 05:46 05:46 WBC 11.61 H (4.50-10.00) 10*3/uL Hgb 17.9 H (13.0-17.0) g/dL Hct 51.7 H (39.6-50.0) % MCH 33.2 H (27.0-32.0) pg Plt Count 132 L (140-440) 10*3/uL MPV 12.6 H (9.5-12.2) fL Immature Gran # 0.05 H (0.00-0.04) 10*3/uL Neutrophils # 8.58 H (1.80-7.70) 10*3/uL Monocytes # 1.51 H (0.20-1.00) 10*3/uL Eosinophils # 0.01 L (0.04-0.35) 10*3/uL Carbon Dioxide 20 L 21 L (22-30) mmol/L BUN 27 H (9-20) mg/dL Creatinine 1.36 H (0.66-1.25) mg/dL Glucose 145 H 123 H (74-99) mg/dL Total Bilirubin 2.4 H (0.2-1.3) mg/dL C-Reactive Protein 2.0 H (<1.0) mg/dL Albumin 3.4 L (3.5-5.0) g/dL
[2025-03-18] MEDS: PANTOPRAZOLE 40 MG TABLET PO SCH (16:16)
--- NOTE | 2025-03-19 06:04 | P.PN ---
Subjective Progress Note Date: 03/18/25 History of Present Illness 79-year-old male with history of coronary artery disease and prior history of stenting came in with complaints of left shoulder pain for about 2 to 3 days radiating to the middle of the upper arm associate with some diaphoresis on and off chest pain. EKG showed ST depressions in anterior and lateral leads chest x-ray that was done at outside hospital did not show any significant abnormality. Patient had last cardiac catheterization in 2021 had a mid LAD stent placed at that time. Patient had a normal ejection fraction in the past from the echocardiogram that was done as an outpatient. Patient was started on heparin and is going to [facility] for cardiac catheterization and possible stenting. 03/18/2025 Patient seen in follow-up today with cardiology following status post cardiac catheterization and noted to have significant coronary artery disease with 40 to 50% in-stent stenosis of the LAD, 20 to 30% of the circumflex, 40 to 50% of the RCA. Cardiology recommending maximizing medical management with outpatient follow-up. Cardiology making adjustments to medications recommending monitoring overnight with possible discharge planning in 24 hours. Review of systems: Constitutional: No reports of fatigue, fever, or chills Cardiovascular: No reports of chest pain or palpitations Respiratory: No reports of shortness of breath or cough GI: No reports of nausea, vomiting, or diarrhea : No reports of dysuria or retention Neurovascular: No reports of weakness or numbness All medications have been reviewed PHYSICAL EXAMINATION: GENERAL: The patient is alert and oriented x3, not in any acute distress. Well developed, well nourished. Elderly appearing, obese HEENT: Pupils are round and equally reacting to light. EOMI. No scleral icterus. No conjunctival pallor. Normocephalic, atraumatic. No pharyngeal erythema. No thyromegaly. CARDIOVASCULAR: S1 and S2 present. No murmurs, rubs, or gallops. PULMONARY: Chest is clear to auscultation, no wheezing or crackles. ABDOMEN: Soft, nontender, nondistended, normoactive bowel sounds. No palpable organomegaly. MUSCULOSKELETAL: No joint swelling or deformity. EXTREMITIES: No cyanosis, clubbing, or pedal edema. NEUROLOGICAL: Gross neurological examination did not reveal any focal deficits. SKIN: No rashes. Assessment: -Acute non-ST elevation myocardial infarction status post cardiac catheteri zation with coronary artery disease with no stenting at this time recommending maximizing medical management -Hypertension -Chronic kidney disease baseline creatinine around 1.3, possibly CKD stage IIIa - Hyperlipidemia - History of coronary artery disease - Type 2 diabetes mellitus -Obesity with a BMI of 30.7 -GI prophylaxis -DVT prophylaxis: Is on anticoagulation at this time - Full code Plan: Patient is continued on telemetry monitoring status postcardiac catheterization with cardiology following. Adjustments to medications being made and cardiology recommending monitoring overnight and considering possible discharge planning in the next 24 hours Continue current medications per cardiology Encourage increase activity as tolerated Possible discharge planning in 24 hours once cleared by cardiology The impression and plan of care has been dictated by Liliya Mercado, Nurse Practitioner as directed. Dr. Eden MD I have performed a history and examination and MDM of this patient, discussed the same with the dictator, and agree with the dictator's assessment and plan as written ,documented as a scribe. Based on total visit time, I have performed more than 50% of the visit. Objective - Vital Signs Vital signs: Vital Signs Temp 97.8 F 03/18/25 08:00 Pulse 101 H 03/18/25 12:00 Resp 16 03/18/25 12:00 BP 138/91 03/18/25 12:00 Pulse Ox 99 03/18/25 12:00 FiO2 Intake & Output 03/17/25 03/18/25 03/18/25 18:59 06:59 18:59 Intake Total 402 Balance 402 Weight 108.862 kg 108.4 kg Intake: IV 402 Other: Voiding Method Toilet Toilet Toilet # Voids 1 2 1 - Labs CBC & Chem 7: 03/18/25 05:46 03/18/25 05:46 Labs: Abnormal Lab Results - Last 24 Hours (Table) 03/18/25 03/18/25 03/18/25 Range/Units 05:46 05:46 05:46 WBC 11.61 H (4.50-10.00) 10*3/uL Hgb 17.9 H (13.0-17.0) g/dL Hct 51.7 H (39.6-50.0) % MCH 33.2 H (27.0-32.0) pg Plt Count 132 L (140-440) 10*3/uL MPV 12.6 H (9.5-12.2) fL Immature Gran # 0.05 H (0.00-0.04) 10*3/uL Neutrophils # 8.58 H (1.80-7.70) 10*3/uL Monocytes # 1.51 H (0.20-1.00) 10*3/uL Eosinophils # 0.01 L (0.04-0.35) 10*3/uL Carbon Dioxide 21 L (22-30) mmol/L Glucose 123 H (74-99) mg/dL Total Bilirubin 2.4 H (0.2-1.3) mg/dL C-Reactive Protein 2.0 H (<1.0) mg/dL Albumin 3.4 L (3.5-5.0) g/dL HDL Cholesterol 38.50 L (40.00-60.00) mg/dL
[2025-03-19 06:42] LABS: Basophils # (A) 0.04 10*3/uL (0.00-0.10); Basophils % (A) 0.3 %; Eosinophils # (A) 0.02 10*3/uL (0.04-0.35); Eosinophils % (A) 0.2 %; HGB 17.1 g/dL (13.0-17.0); Lymphocytes # (A) 1.43 10*3/uL (0.90-5.00); Lymphocytes % (A) 11.6 %; MCH 32.8 pg (27.0-32.0); MCHC 34.2 g/dL (32.0-37.0); Mean Platelet Volume 12.6 fL (9.5-12.2); Monocytes # (A) 1.92 10*3/uL (0.20-1.00); Monocytes % (A) 15.6 %; Neutrophils % (A) 72.1 %; Platelet Count 132 10*3/uL (140-440); RBC 5.21 10*6/uL (4.40-5.60); WBC 12.34 10*3/uL (4.50-10.00)
[2025-03-19 06:51] LABS: ALT 14 U/L (4-49); AST 35 U/L (17-59); African American GFR (CKD) 54 (>60 ml/min/1.73 sqM); Albumin 3.4 g/dL (3.5-5.0); Alkaline Phosphatase 66 U/L (38-126); Anion Gap 10 mmol/L; Blood Urea Nitrogen 20 mg/dL (9-20); Calcium 9.3 mg/dL (8.4-10.2); Carbon Dioxide 21 mmol/L (22-30); Chloride 106 mmol/L (98-107); Glucose 139 mg/dL (74-99); Magnesium 1.7 mg/dL (1.6-2.3); Non-African American GFR(CKD) 47 (>60 ml/min/1.73 sqM); Potassium 4.1 mmol/L (3.5-5.1); Sodium 137 mmol/L (137-145); Total Bilirubin 2.4 mg/dL (0.2-1.3); Total Protein 6.3 g/dL (6.3-8.2)
[2025-03-19 11:26] VITALS: BP 147/83; PULSE 98; RESP 14; TEMP 98.5
--- NOTE | 2025-03-19 12:25 | CA ---
Transthoracic Echo Report Name: Judson Jennings Age: 79 Gender: M : 1945 Exam Date: 03/17/2025 08:59 Exam Location: [facility] Ht (in): 74 Wt (lb): 240 Ordering Physician: Edda Flor Attending/Referring Phys: Finisher Accordion Nicole Nixon RDCS Procedure CPT: Indications: LVF Cardiac Hx: Technical Quality: Technically difficult study Contrast 1: Definity Total Dose (mL): 5 Contrast 2: Total Dose (mL): MEASUREMENTS (Male / Female) Normal Values 2D ECHO LV Diastolic Diameter PLAX 3.7 cm 4.2 - 5.9 / 3.9 - 5.3 cm LV Systolic Diameter PLAX 3.0 cm IVS Diastolic Thickness 0.9 cm 0.6 - 1.0 / 0.6 - 0.9 cm LVPW Diastolic Thickness 0.9 cm 0.6 - 1.0 / 0.6 - 0.9 cm LV Relative Wall Thickness 0.5 LVOT Diameter 2.5 cm LV Diastolic Volume MOD BP 106.3 cm??? 67 - 155 / 56 - 104 cm??? LV Systolic Volume MOD BP 67.6 cm??? 22 - 58 / 19 - 49 cm??? LV Ejection Fraction MOD BP 36.4 % >= 55 % LV Cardiac Index MOD BP 1379.8 cm???/min???m??? LV Diastolic Volume MOD 4C 106.9 cm??? LV Systolic Volume MOD 4C 66.4 cm??? LV Ejection Fraction MOD 4C 37.9 % LV Cardiac Index MOD 4C 1446.3 cm???/min???m??? LV Diastolic Length 4C 8.2 cm LV Systolic Length 4C 7.3 cm LV Diastolic Volume MOD 2C 105.9 cm??? LV Systolic Volume MOD 2C 63.8 cm??? LV Ejection Fraction MOD 2C 39.7 % LV Cardiac Index MOD 2C 1502.6 cm???/min???m??? LV Diastolic Length 2C 8.2 cm LV Systolic Length 2C 6.8 cm LA Volume 35.9 cm??? 18 - 58 / 22 - 52 cm??? LA Volume Index 14.9 cm???/m??? 16 - 28 cm???/m??? DOPPLER AV Peak Velocity 91.0 cm/s AV Peak Gradient 3.3 mmHg AV Mean Velocity 62.9 cm/s AV Mean Gradient 1.8 mmHg AV Velocity Time Integral 16.5 cm LVOT Peak Velocity 42.5 cm/s LVOT Peak Gradient 0.7 mmHg LVOT Velocity Time Integral 14.6 cm LVOT Stroke Volume 69.7 cm??? LVOT Stroke Volume Index 29.7 ml/m??? LVOT Cardiac Index 2489.0 cm???/min???m??? AV Area Cont Eq vti 4.2 cm??? AV Area Cont Eq pk 2.2 cm??? MV Area PHT 7.3 cm??? Mitral E Point Velocity 58.3 cm/s Mitral A Point Velocity 89.8 cm/s Mitral E to A Ratio 0.6 MV Deceleration Time 104.0 ms FINDINGS Left Ventricle Left ventricular ejection fraction is estimated at 30 to 35 %. Left ventricular cavity size normal. Anteroapical, anteroseptal and anterolateral akinesis Right Ventricle Right ventricle not well visualized.Unable to estimate the right ventricular systolic pressure. Right Atrium Right atrium not well visualized. Left Atrium Normal left atrial size. Mitral Valve Structurally normal mitral valve. No evidence for mitral valve prolapse. No mitral stenosis. Mild mitral regurgitation. Aortic Valve Aortic valve not well visualized. No aortic valve stenosis or regurgitation. Tricuspid Valve Structurally normal tricuspid valve. No tricuspid stenosis. No tricuspid regurgitation. Pulmonic Valve Pulmonic valve not well visualized. Pericardium No pericardial effusion. Aorta Aortic annulus normal. Ascending aorta not well visualized. CONCLUSIONS Technically difficult study. Definity ECHO contrast used for improved visualization of the endocardial borders (inadequate visualization of two or more contiguous segments). Severely impaired left ventricular systolic function with segmental wall motion abnormality consistent with CAD Limited Doppler study with mild mitral regurgitation Previewed by: Dr. Jessica Hogan MD (Electronically Signed) Final Date: 17 March 2025 12:04
--- NOTE | 2025-03-19 13:28 | P.PN ---
Subjective Progress Note Date: 03/19/25 Requesting physician: Praveen Crow Reason for Consult (text): chest pain Chief complaint: Left shoulder pain History of present illness: Patient is a 79 year old male with past medical history of CAD status post prior stenting, diabetes mellitus, hyperlipidemia, hypertension, TIA presented to the ED with left shoulder pain. Patient reports having left shoulder pain for 2 to 3 days now. Pain extends down to middle of the upper arm. He reports worsening of the pain with brisk walks. Denies chest pain. Denies any increase in physical activity. Denies trauma/injury. Associated with that he reports epigastric burning and diaphoresis. Patient initially presented to [facility] where he had elevated high-sensitivity troponin of 11 with a repeat of 59. He was started on heparin and transferred to our hospital. In 1998 patient had a mid LAD stent placed. Patient had cardiac cath January 2022 that showed the mid LAD stent was patent, 50% stenosis of the mid LAD, dominant circumflex, with only mild luminal irregularities. Carotid ultrasound done in June 2023 showed less than 50% stenosis bilaterally. Dnies fever, chills, shortness of breath, cough, chest pain, palpitations, nausea, vomiting, hematuria, dysuria, hematochezia, melena, headache, slurred speech, numbness, tingling, dizziness, lightheadedness, blurred vision, double vision. ED documentation reviewed. In the ED patient was treated with aspirin 325 mg, heparin drip. Vitals T 98.1 F, DC 79 bpm, RR 18, BP 155/94, SpO2 99% on room air EKG independently interpreted as sinus rhythm, ST depression in lead II,, rate 87 bpm, QTc 403 ms Chest x-ray done at [facility] showed no consolidation Labs show sodium 140, potassium 4.4, magnesium 1.8, creatinine 1.37, Troponin I 3.30, 4.64 Echocardiogram done in office December 2023 showed EF 50%, mildly improved from prior 45 to 40% with mild aortic regurgitation and mild mitral regurgitation 03/18 Patient seen and examined. Yesterday, patient underwent cardiac catheterization with Dr. Portillo which revealed coronary artery disease with 40 to 50% in-stent LAD stenosis, 20 to 30% circumflex, 99% small caliber diagonal 1 branch, 40 to 50% RCA stenosis. iFR was normal on the RCA. LV EF 40 to 45% with mid anterior, mild inferior hypokinesis however preserving the apex. Progression of small caliber diagonal 1 inferior branch may be culprit vessel however diagonal branch does not explain wall motion abnormalities and diagonal stenosis may be more chronic. Other etiologies to be considered including Takotsubo versus myocarditis and consider cardiac MRI as an outpatient. Patient to be on dual antiplatelets for 12 months. This morning, patient denies chest pain. He denies left shoulder pain. No tenderness. He is complaining of cough that is chronic with phlegm production. Blood pressure 115/78, heart rate 90, pulse ox 98% on room air. 03/19 Patient seen and examined. Blood pressure 142/83, heart rate 108, pulse ox 97% on room air. Echocardiogram reveals EF of 30 to 35% which is a drop from previous. Patient denies chest pain or shortness of breath at this time. Plan to maximize medical therapy. Physical examination: Vital signs reviewed GENERAL: This is a 79-year-old obese male in no acute respiratory distress. HEENT: Head is atraumatic, normocephalic. Pupils equal, round. Sclerae is a nicteric. NECK: Supple. No JVD. No carotid bruit LUNGS: Clear to auscultation. No wheezes or rhonchi. No intercostal retractions. HEART: Regular rate and rhythm. No murmur or gallop or rub ABDOMEN: Soft No tenderness. EXTREMITIES: Left shoulder tenderness, No pedal edema. No calf tenderness. 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 Portillo and Silvino Patient is cleared for discharge and will follow-up with Dr. Portillo in 1 to 2 weeks. Nurse practitioner note has been reviewed, I agree with documented findings and plan of care. Patient was seen and examined. Objective - Vital Signs Vital signs: Vital Signs Temp 99.1 F 03/19/25 07:25 Pulse 108 H 03/19/25 07:25 Resp 12 03/19/25 07:25 BP 142/83 03/19/25 07:25 Pulse Ox 97 03/19/25 07:25 FiO2 Intake & Output 03/18/25 03/19/25 03/19/25 18:59 06:59 18:59 Weight 107.9 kg Other: Voiding Method Toilet Toilet Toilet # Voids 1 2 - Labs CBC & Chem 7: 03/19/25 06:08 03/19/25 06:08 Labs: Abnormal Lab Results - Last 24 Hours (Table) 03/18/25 03/19/25 03/19/25 Range/Units 05:46 06:08 06:08 WBC 12.34 H (4.50-10.00) 10*3/uL Hgb 17.1 H (13.0-17.0) g/dL MCH 32.8 H (27.0-32.0) pg Plt Count 132 L (140-440) 10*3/uL MPV 12.6 H (9.5-12.2) fL Neutrophils # 8.90 H (1.80-7.70) 10*3/uL Monocytes # 1.92 H (0.20-1.00) 10*3/uL Eosinophils # 0.02 L (0.04-0.35) 10*3/uL Carbon Dioxide 21 L (22-30) mmol/L Creatinine 1.42 H (0.66-1.25) mg/dL Glucose 139 H (74-99) mg/dL Total Bilirubin 2.4 H (0.2-1.3) mg/dL Albumin 3.4 L (3.5-5.0) g/dL HDL Cholesterol 38.50 L (40.00-60.00) mg/dL
[2025-03-19] MEDS: DAPAGLIFLOZIN PROPANEDIOL 10 MG TABLET PO SCH (14:28)
--- NOTE | 2025-03-20 20:56 | P.DS ---
Providers Date of admission: 03/17/25 12:05 Attending physician: Jose Contreras Consults: 03/17/25 02:17 Consult Physician Urgent Consulting Provider: Jonatan Portillo Consult Reason/Comments: chest pain Do you want consulting provider notified?: Yes Primary care physician: Devika Dubois Hospital Course: Final Diagnosis - Acute non-ST elevation myocardial infarction status post cardiac catheterization with coronary artery disease with no stenting at this time recommending maximizing medical management - Hypertension - Chronic kidney disease baseline creatinine around 1.3, possibly CKD stage IIIa - Hyperlipidemia - History of coronary artery disease - Type 2 diabetes mellitus - Cardiomyopathy - Obesity with a BMI of 30.7 Discharge Disposition Patient stable for discharge home on optimized cardiac medications. Patient to follow up with Dr Portillo in 1 week. Follow up with PCP Dr Devika Dubois 1 to 2 days. Hospital Course 79-year-old male with history of coronary artery disease and prior history of stenting came in with complaints of left shoulder pain for about 2 to 3 days radiating to the middle of the upper arm associate with some diaphoresis on and off chest pain. EKG showed ST depressions in anterior and lateral leads chest x-ray that was done at outside hospital did not show any significant abnormality. Patient had last cardiac catheterization in 2021 had a mid LAD stent placed at that time. Patient had a normal ejection fraction in the past from the echocardiogram that was done as an outpatient. Patient was started on heparin and is going to [facility] for cardiac catheterization. noted to have significant coronary artery disease with 40 to 50% in-stent stenosis of the LAD, 20 to 30% of the circumflex, 40 to 50% of the RCA. Cardiology recommending maximizing medical management with outpatient follow-up. Echocardiogram reveals EF of 30 to 35% which is a drop from previous. Patient denies chest pain or shortness of breath at this time. Plan to maximize medical therapy. Please see medication reconciliation for a list of current medications. Thank you for allowing us to participate in the care of this patient. The impression and plan of care has been dictated by Cailin Faye, Nurse Practitioner as directed. Dr. Eden MD I have performed a history and physical examination and medical decision making of this patient, discussed the same with the dictator, and agree with the dictators assessment and plan as written, documented as a scribe. Based on total visit time, I have performed more than 50% of this visit. Patient Condition at Discharge: Fair Plan - Discharge Summary Discharge Rx Participant: No New Discharge Prescriptions: New Isosorbide Mononitrate ER [Imdur] 30 mg PO DAILY #30 tab Pantoprazole [Protonix] 40 mg PO AC-BID #60 tab Dapagliflozin Propanediol [Farxiga] 10 mg PO DAILY #30 tab Clopidogrel [Plavix] 75 mg PO DAILY #30 tab Continue Omeprazole [PriLOSEC] 20 mg PO DAILY Calcium Tab 300 mg PO DAILY Cholecalciferol (Vitamin D3) [Vitamin D3 (50 Mcg = 2000 Iu)] 50 mcg PO DAILY Acetaminophen Tab [Tylenol] 1,000 mg PO BID Tamsulosin HCl [Flomax] 0.4 mg PO BID Folic Acid 1 mg PO HS carvediloL [Coreg] 6.25 mg PO BID Atorvastatin [Lipitor] 80 mg PO HS Aspirin [Adult Low Dose Aspirin EC] 81 mg PO HS allopurinoL [Zyloprim] 300 mg PO HS Losartan [Cozaar] 50 mg PO HS Discontinued [place]-3 Fatty Acids/Fish Oil [Fish Oil 1,000 mg Softgel] 1 cap PO DAILY cloNIDine HCL [Catapres] 0.2 mg PO BID Discharge Medication List Acetaminophen Tab [Tylenol] 1,000 mg PO BID 02/20/22 [History] Aspirin [Adult Low Dose Aspirin EC] 81 mg PO HS 02/20/22 [History] Atorvastatin [Lipitor] 80 mg PO HS 02/20/22 [History] Calcium Tab 300 mg PO DAILY 02/20/22 [History] Folic Acid 1 mg PO HS 02/20/22 [History] Omeprazole [PriLOSEC] 20 mg PO DAILY 02/20/22 [History] Tamsulosin HCl [Flomax] 0.4 mg PO BID 02/20/22 [History] allopurinoL [Zyloprim] 300 mg PO HS 02/20/22 [History] carvediloL [Coreg] 6.25 mg PO BID 02/20/22 [History] Cholecalciferol (Vitamin D3) [Vitamin D3 (50 Mcg = 2000 Iu)] 50 mcg PO DAILY 03/17/25 [History] Losartan [Cozaar] 50 mg PO HS 03/17/25 [History] Clopidogrel [Plavix] 75 mg PO DAILY #30 tab 03/19/25 [Rx] Dapagliflozin Propanediol [Farxiga] 10 mg PO DAILY #30 tab 03/19/25 [Rx] Isosorbide Mononitrate ER [Imdur] 30 mg PO DAILY #30 tab 03/19/25 [Rx] Pantoprazole [Protonix] 40 mg PO AC-BID #60 tab 03/19/25 [Rx] Follow up Appointment(s)/Referral(s): Jonatan Portillo DO [STAFF PHYSICIAN] - 1 Week (Please call to schedule hospital follow up apt. ) Devika Dubois MD [Primary Care Provider] - 1-2 days (Please call to schedule [facility] follow [facility] apt[facility] ) Ambulatory/Diagnostic Orders: Basic Metabolic Panel [LAB.AMB] Location: None Selected Miscellaneous Lab Order [LAB.AMB] Location: None Selected Patient Instructions/Handouts: Heart Attack (DC) Discharge Disposition: HOME SELF-CARE Plan of Treatment: BMP and NT proBNP in 1 week
== END 2025-03-19 14:42 | disposition home or self-care (01) | DRG 281 ==
LOC: EC 01:58 → 3SCARD 02:18 → OBSVTOIN 12:05 → 3SCARD 13:10
PROVIDERS: ADMIT Hospitalist; ATTEND Hospitalist
PROC: B2151ZZ Fluoroscopy of Left Heart using Low Osmolar Contrast (ICD-10-PCS; 2025-03-17)
PROC: 4A023N7 Measurement of Cardiac Sampling and Pressure, Left Heart, Percutaneous Approach (ICD-10-PCS; principal; 2025-03-17 14:45)
PROC: B2111ZZ Fluoroscopy of Multiple Coronary Arteries using Low Osmolar Contrast (ICD-10-PCS; 2025-03-17 14:45)
DX: T82.855A Stenosis of coronary artery stent, initial encounter (principal); I42.9 Cardiomyopathy, unspecified; I21.4 Non-ST elevation (NSTEMI) myocardial infarction; E11.22 Type 2 diabetes mellitus with diabetic chronic kidney disease; N18.31 Chronic kidney disease, stage 3a; E66.9 Obesity, unspecified; I12.9 Hypertensive chronic kidney disease with stage 1 through stage 4 chronic kidney disease, or unspecified chronic kidney disease; I08.0 Rheumatic disorders of both mitral and aortic valves; E78.5 Hyperlipidemia, unspecified; H53.2 Diplopia; I25.10 Atherosclerotic heart disease of native coronary artery without angina pectoris; M25.512 Pain in left shoulder; I25.2 Old myocardial infarction; N18.9 Chronic kidney disease, unspecified; Y83.1 Surgical operation with implant of artificial internal device as the cause of abnormal reaction of the patient, or of later complication, without mention of misadventure at the time of the procedure; Z68.30 Body mass index [BMI] 30.0-30.9, adult; Z79.01 Long term (current) use of anticoagulants; Z79.82 Long term (current) use of aspirin; Z79.899 Other long term (current) drug therapy; Z86.73 Personal history of transient ischemic attack (TIA), and cerebral infarction without residual deficits; Z87.891 Personal history of nicotine dependence
CPT/HCPCS: 36415; 80048; 80053; 80061; 83735; 84484; 85025; 85652; 85730; 86140; 93005; 93306; 93458; 93799; 96374; 96375; 99285